=== PATIENT | female | born 1985 | race Hispanic/Latino ===

== ENCOUNTER 2018-12-28 20:52 | Inpatient (IN) | payer OTHER ==
[2018-12-28] MEDS ORDERED: Lactated Ringer's 1,000 ML IV ONE (21:30)
[2018-12-29 01:09] LABS: BASO % 0.5 % (0.0-2.0); EOS # 0.1 K/uL (0.0-0.7); HEMOGLOBIN 10.2 g/dL (12.0-16.0); LYMPH # 2.3 K/uL (1.0-4.3); LYMPH % 26.7 % (20.0-40.0); MEAN CORPUSCULAR HEMOGLOBIN 28.7 pg (27.0-31.0); MEAN CORPUSCULAR HGB CONC 33.4 g/dL (33.0-37.0); MEAN PLATELET VOLUME 10.7 fl (7.2-11.7); MONO # 0.7 K/uL (0.0-0.8); MONO % 8.4 % (0.0-10.0); NEUT # 5.6 K/uL (1.8-7.0); NEUT % 63.4 % (50.0-75.0); NRBC % 0.1 % (0.0-0.0); RBC 3.54 Mil/uL (3.80-5.20); RED CELL DISTRIBUTION WIDTH 15.6 % (11.5-14.5); WHITE BLOOD COUNT 8.8 K/uL (4.8-10.8)
[2018-12-29 05:20] VITALS: BMI 38.0
[2018-12-29 05:29] VITALS: RESP 20
[2018-12-29] MEDS: Lactated Ringer's 1,000 ML IV SCH ×2 (05:30→11:00)
--- NOTE | 2018-12-29 07:23 | OBHP ---
Datetime: 12/28/2018 21:22 IP Adm Impression: Term, intrauterine IP Admit Plan: Admit to unit; Initiate labor protocol Admit Comment, IP Provider: 33 y/o , 40.5 weeks based on US presents to L_D for IOL. Patient rep orts occasional CTx every few hours. Denies LOF, VB. Endorses good movements. Denies any F/C/N/ V/D. care: Dr. Madera, records reviewed. GBS neg PMHx; Denies PSHx: Denies Allergies: NKDA F/H: DM and HTN in grandparents Social Hx: Denies smoking/drugs/alcohol Meds: PNVs PE Gen: NAD Chest: RRR, S1S2 present Lungs: CTAB Abdoemen: Gravid, soft, NT, BS+ Ext: +1 B/L pitting edema Psych: Normal mood and affact A/P: 33 y/o , 40.5 weeks based on US presents to L_D for IOL for late term elective induction. - EFM and toco monitoring - CBC, T_S, HIV, RPR, HbsAg - GBS negative - LR 999 and 125 - Cervidil for cervical ripening - Monitor for cervical changes Case discussed with Dr. Bullock and Dr. Dameon Hinojosa, PGY1 Patient was seen with the resident I agree with the note Pelvic Type - PN: Not Done Extremities - PN: Normal Abdomen - PN: Normal Back - PN: Normal Breast - PN: Not Done Lungs - PN: Normal Heart - PN: Normal Thyroid - PN: Not Done Neurologic - PN: Not Done HEENT - PN: Normal General - PN: Normal Presentation-Admit: Vertex FHR - Baseline A Provider: 140 IP Hx Assessment: The History has been Reviewed and is Current EGA AdmitDate IP: 40.5 Vital Signs Provider: Reviewed; Within Normal Limits IP Indication for Induction: Postterm IP Chief Complaint: Scheduled induction of labor NICHD Variability Prov Fetus A: Moderate 6-25bpm NICHD Accel Fetus A IP Provider: 15X15 FHR Category Provider Fetus A: Category I NICHD Decel Fetus A IP Provider: None Genitourinary Exam: Not Done DTRs - PN: Not Done
--- NOTE | 2018-12-29 12:59 | OBPN ---
Datetime: 12/29/2018 12:53 IP Procedures: Sterile Vag Exam IP Progress Plan: Continue present management; Induction Membranes, Provider: Intact Contraction Comments Provider: irreg pattern mild ctxs FHR - Baseline A Provider: 140s-150s IP Progress Note Comment: Patient comfortable without complaints. Cytotec 50 mcg placed vaginally. heart tracing category 1. Discussed plan with patient and all patient questions answered. Vital Signs Provider: Reviewed; Within Normal Limits NICHD Accel Fetus A IP Provider: 15X15 FHR Category Provider Fetus A: Category I NICHD Variability Prov Fetus A: Moderate 6-25bpm Dilatation, Provider: 1 Effacement, Provider: 50 Station, Provider: -2 NICHD Decel Fetus A IP Provider: None Datetime: 12/28/2018 21:22 Presentation-Admit: Vertex
--- NOTE | 2018-12-29 17:27 | OBPN ---
Datetime: 12/29/2018 17:20 IP Procedures: Sterile Vag Exam IP Progress Plan: Continue present management; Induction FHR - Baseline A Provider: 140s-150s IP Progress Note Comment: Patient without complaints. heart tracing category 1. Cytotec 50 m cg no. 2 placed vaginally. Plan to continue current management. Discussed plan with patient and all patient questions answered. Vital Signs Provider: Reviewed; Within Normal Limits NICHD Accel Fetus A IP Provider: 15X15 FHR Category Provider Fetus A: Category I NICHD Variability Prov Fetus A: Moderate 6-25bpm Dilatation, Provider: 1 Effacement, Provider: 75 Station, Provider: -1 NICHD Decel Fetus A IP Provider: None
[2018-12-29] MEDS ORDERED: Oxytocin 30 UNIT in NS 500 ml 30 UNITS/500 ML BAG IV ONE (21:40)
--- NOTE | 2018-12-29 23:26 | OBPN ---
Datetime: 12/29/2018 21:20 IP Procedures: Sterile Vag Exam IP Progress Plan: Continue present management; Augmentation FHR - Baseline A Provider: 150s IP Progress Note Comment: Patient without complaints. heart tracing category 1. Plan to star t Pitocin augmentation. Discussed plan with patient and all patient questions answered. Vital Signs Provider: Reviewed; Within Normal Limits NICHD Accel Fetus A IP Provider: 15X15 NICHD Variability Prov Fetus A: Moderate 6-25bpm Dilatation, Provider: 1-2 Effacement, Provider: 75 Station, Provider: -1 NICHD Decel Fetus A IP Provider: None
[2018-12-30] MEDS ORDERED: Nalbuphine HCL 10 mg/ml Ampule IVP PRN (01:30)
[2018-12-30] MEDS ORDERED: Fentanyl/Bupivacaine HCl 250 ML EPI ONE (02:57)
[2018-12-30] MEDS: Lactated Ringer's 1,000 ML IV SCH ×4 (03:38→21:20)
--- NOTE | 2018-12-30 08:19 | OBPN ---
Datetime: 12/30/2018 08:12 IP Progress Plan: Continue present management; Augmentation FHR - Baseline A Provider: 130s-140s IP Progress Note Comment: Patient resting comfortably status post epidural. Continue current manage ment. heart tracing category 1. Discussed plan with patient and all patient questions answere d. Vital Signs Provider: Reviewed; Within Normal Limits NICHD Accel Fetus A IP Provider: 15X15 FHR Category Provider Fetus A: Category I NICHD Variability Prov Fetus A: Moderate 6-25bpm Dilatation, Provider: 2-3 per RN NICHD Decel Fetus A IP Provider: None
[2018-12-30] MEDS ORDERED: Oxytocin 30 UNIT in NS 500 ml 30 UNITS/500 ML BAG IV ONE (16:31)
[2018-12-30] MEDS ORDERED: Bupivacaine HCl 0.25% PF (10 ml) Inj ONE (19:35)
[2018-12-30] MEDS ORDERED: Lidocaine 1% Inj (20ml) ONE (22:39)
[2018-12-31] MEDS ORDERED: Bupivacaine HCl 0.5% PF (30 ml) Inj ONE ×2 (01:11→03:22)
[2018-12-31] MEDS ORDERED: Oxytocin 30 UNIT in NS 500 ml 30 UNITS/500 ML BAG IV ONE (02:06)
[2018-12-31] MEDS: Lactated Ringer's 1,000 ML IV SCH ×2 (05:30→07:26)
[2018-12-31] MEDS ORDERED: ceFAZolin 2 GM in Sodium Chloride 0.9% 100 ML IVPB ONE (06:44)
[2018-12-31] MEDS ORDERED: Azithromycin 500 MG in Sodium Chloride 0.9% 250 ML IVPB STA (06:45)
[2018-12-31] MEDS ORDERED: Morphine 1 mg/ml preservative-free Inj(Duramorph) ONE (07:43)
--- NOTE | 2018-12-31 09:34 | OBDS ---
DELIVERY PERSONNEL Delivery Doctor: Vesta Bullock MD Road Hogger Operator: Sofía Drummond [facility] Anesthesiologist: Dr. Arroyo MATERNAL INFORMATION Delivery Anesthesia: Epidural; Spinal Medications in Delivery: pitocin Provider Comments: See operative report LABOR SUMMARY EDC: 12/23/2018 00:00 No. Babies in Womb: 1 Attempted: No Labor Anesthesia: Epidural LABOR INFORMATION Reason for Induction: Postterm Complete Dilatation: 12/31/2018 00:44 Cervical Ripening Agents: Cervidil; Cytotec @ Oxytocin: Induction Group B Beta Strep: Negative Steroids Given: None Reason Steroids Not Administered: Not Applicable MEMBRANES Membranes Rupture Method: Artificial Rupture of Membranes: 12/30/2018 15:44 Length of Rupture (hrs): 16.95 Amniotic Fluid Color: Clear Amniotic Fluid Amount: Small Amniotic Fluid Odor: Normal STAGES OF LABOR Stage 2 hrs: 7 Stage 2 min: 57 Stage 3 hrs: 0 Stage 3 min: 1 CSECTION DELIVERY Primary Indication: Prolonged Active Phase Secondary Indication: Failed Induction CSection Urgency: Non Elective CSection Incidence: Primary Labor: Labor Elective: Nonelective CSection Incision: Lower Uterine Transverse BABY A INFORMATION Infant Delivery Date/Time: 12/31/2018 08:41 Method of Delivery: Born in Route : No : N/A Forceps: N/A Shoulder Dystocia : No (Annotations: Data stored by [facility] on behalf of user) SHOULDER DYSTOCIA BABY A Delivery Date/Time: 12/31/2018 08:41 PRESENTATION/POSITION BABY A Presentation: Cephalic Cephalic Presentation: Vertex Vertex Position: Direct OP Breech Presentation: N/A PLACENTA INFORMATION BABY A Placenta Delivery Time : 12/31/2018 08:42 Placenta Method of Delivery: Expressed Placenta Status: Delivered SCORES BABY A Heart Rate 1 min: >100 bpm Resp Effort 1 min: Slow, Irregular Reflex Irritability 1 min: Grimace Muscle Tone 1 min: Some Flexion of Extremities Color 1 min: Body [place], Extremities Blue SCORE 1 MIN: 6 Heart Rate 5 min: >100 bpm Resp Effort 5 min: Slow, Irregular Reflex Irritability 5 min: Cough or Sneeze or Pulls Away Muscle Tone 5 min: Some Flexion of Extremities Color 5 min: Body [place], Extremities Blue SCORE 5 MIN: 7 Heart Rate 10 min: >100 bpm Resp Effort 10 min: Good Cry Reflex Irritability 10 min: Cough or Sneeze or Pulls Away Muscle Tone 10 min: Active Motion Color 10 min: Body [place], Extremities Blue SCORE 10 MIN: 9 INFORMATION BABY A Gestational Age at Delivery: 41.1 Gestational Status: Term Outcome : Liveborn Infant Condition : Stable Sex: Female IDENTIFICATION/MEDS BABY A ID Band Location: Left Leg; Left Arm WEIGHT/LENGTH BABY A Infant Birthweight (gms): 3910 Weight (lb): 8 Infant Weight (oz): 10 CORD INFORMATION BABY A No. Cord Vessels: 3 Nuchal Cord : N/A Cord Blood Taken: Yes Infant Suction: Mouth; Nose; Pharynx ASSESSMENT BABY A Complications: Meconium Physical Findings at Delivery: Within Normal Limits; Caput Succedaneum; Molding of the Head Respirations: Grunting Directional Drill Operator/ALS Called : Yes Transferred To: Nursery
[2018-12-31] MEDS ORDERED: Lactated Ringer's 1,000 ML IV SCH (10:15)
[2018-12-31] MEDS ORDERED: OXYTOCIN/0.9 % NS 20 UNIT/1,000 ML BAG IV SCH (10:45)
[2018-12-31] MEDS ORDERED: Lactated Ringer's 500 ML IV SCH ×2 (19:15→20:45)
[2018-12-31] MEDS ORDERED: Oxycodone/Acetaminophen 5/325 mg Tab PO PRN (20:42)
[2019-01-01 06:47] LABS: MEAN CELL VOLUME 85.6 fl (81.0-99.0); MEAN CORPUSCULAR HGB CONC 32.6 g/dL (33.0-37.0); RBC 2.52 Mil/uL (3.80-5.20); WHITE BLOOD COUNT 15.7 K/uL (4.8-10.8)
[2019-01-01 06:58] LABS: HEMOGLOBIN 7.1 g/dL (12.0-16.0)
--- NOTE | 2019-01-01 14:08 | OBPPN ---
Datetime: 01/01/2019 14:04 PP Pain Prov: Within normal limits PP Nausea Prov: Denies PP Flatus Prov: Yes PP Breasts Prov: Not Done PP Heart Prov: Normal PP Lungs Prov: Normal PP Abdomen/Uterus Prov: Normal PP Lochia Prov: Not Done PP Vulva/Perineum Prov: Not Done PP CVA Tenderness Prov: Normal PP Extremities Prov: Normal PP C/S Incision Prov: Normal PP Impression Prov: Normal progression PP Plan Prov: Continue present management PP Progress Note Prov: Postoperative day #1 ambulating tolerating diet pain well controlled Vital signs stable afebrile Uterus firm below the umbilicus Incision clean dry and intact Extremities no Homans Postop day #1 Encourage ambulation analgesia regular diet anticipate discharge in a.m. DC Crooks and IV fluids Vital Signs Provider PP: Reviewed
--- NOTE | 2019-01-02 09:34 | OBPPN ---
Datetime: 01/02/2019 09:21 PP Pain Prov: Within normal limits PP Nausea Prov: Denies PP Flatus Prov: Yes PP Breasts Prov: Normal PP Heart Prov: Normal PP Lungs Prov: Normal PP Abdomen/Uterus Prov: Normal PP Lochia Prov: Normal PP Vulva/Perineum Prov: Normal PP CVA Tenderness Prov: Normal PP Extremities Prov: Normal PP Comments Phys Exam Prov: Fundus firm under umbilicus Incision clean/dry/intact PP Impression Prov: Normal progression PP Plan Prov: Continue present management PP Progress Note Prov: Patient denies CP, no SOB, no N/V, tolerating Po diet, ambulating/voidng well , mild lochia, abdominal pain tolerable with meds, +flatus A/P POD #2 1. Continue postoperative orders 2. Encourage ambulation/ IP PP Procedures: None Vital Signs Provider PP: Reviewed; Within Normal Limits Vital Signs Provider Details PP: +2 edema B/L LE
--- NOTE | 2019-01-03 08:49 | OP ---
PROCEDURE DATE: 12/31/18 PREOPERATIVE DIAGNOSES: Intrauterine at 41 weeks, failed induction, maternal request for primary section, arrest of dilation at 9 cm. POSTOPERATIVE DIAGNOSES: Intrauterine at 41 weeks, failed induction, maternal request for primary section, arrest of dilation at 9 cm. OPERATION PERFORMED: Primary low-flap transverse section by Pfannenstiel skin incision. SURGEON: Irina Bullock MD CADDIE SUPERVISOR: Dr. Joycelyn Xiao. She was helpful in creating exposure, obtaining hemostasis, delivery of the and closure of the patient. The procedure would not have been possible without her assistance. ANESTHESIA: Spinal. ANESTHESIA ADMINISTERED BY: Dr. Arroyo. ESTIMATED BLOOD LOSS: 1000 mL. The patient received 1900 mL of D5 LR intraoperatively. URINE OUTPUT: 60 mL. OPERATIVE FINDINGS: Female , occiput posterior position, weighing 3910 g. Normal uterus, tubes, and ovaries were identified. DESCRIPTION OF PROCEDURE: After informed consent was obtained, the patient was taken to the operating room, where she was given spinal anesthesia. She was then prepped and draped in the normal sterile fashion with a leftward tilt. A Pfannenstiel skin incision was then made with a scalpel and carried down to the underlying layer of fascia. The fascia was nicked in the midline. The fascial incision was then extended laterally with curved Coleman scissors. The superior aspect of the fascial incision was then grasped with Genoveva clamps, elevated up, and the rectus muscles were dissected off using both sharp and blunt dissection. Attention was then turned to the inferior aspect of the fascial incision, which in a similar fashion, was grasped with Genoveva clamps and elevated up, and the rectus muscles were dissected off using both sharp and blunt dissection. The rectus muscles were then in the midline. The peritoneum identified and entered sharply with the Metzenbaum scissors. Peritoneal incision was then extended superiorly and inferiorly with good visualization of the bladder. The bladder blade was inserted. The vesicouterine peritoneum was identified and entered sharply with Metzenbaum scissors. The incision was then extended laterally. The bladder flap was created digitally. The bladder blade was then re-adjusted, and a low transverse incision was made with the scalpel. The uterine incision was then extended laterally with the bandage scissors. The infant's head was then delivered atraumatically. The nose and mouth were suctioned with DeLee suction trap. The cord was clamped and cut. The was handed off to the awaiting pediatricians. The placenta was then removed manually. The uterus was then closed with 0 Vicryl in a running locked fashion. A second layer of the same suture was used to obtain excellent hemostasis. The uterus was then returned to the abdomen. The gutters were then cleared of all clots and debris. The abdomen was copiously irrigated. The irrigant was removed with suction device. Hemostasis was noted. The peritoneum was then closed with 2-0 Vicryl in a running fashion. The muscles were reapproximated with 0 Vicryl in an interrupted fashion. The fascia was closed with 0 Vicryl in a running fashion. The skin was closed with 3-0 on a Storm needle. All sponge, lap, needle, and instrument counts were correct x2. The patient was taken to the recovery room in awake and stable condition. Irina Bullock MD
--- NOTE | 2019-01-03 08:54 | OBPPN ---
Datetime: 01/03/2019 08:48 PP Pain Prov: Within normal limits PP Nausea Prov: Denies PP Flatus Prov: Yes PP Breasts Prov: Normal PP Heart Prov: Normal PP Lungs Prov: Normal PP Abdomen/Uterus Prov: Normal PP Lochia Prov: Normal PP Vulva/Perineum Prov: Not Done PP CVA Tenderness Prov: Normal PP Extremities Prov: Normal PP C/S Incision Prov: Normal PP Progress Prov: Normal PP Impression Prov: Normal progression PP Plan Prov: Continue present management PP Impression Other Prov: Anemia PP Progress Note Prov: She feels fine; had BM yesterday H/H 02/26 A: S/ P C/S Anemia asymptomatic Rh neg PLAN: will dishcarge home and follow up in 1-2w [facility] Rec'd Rhogam yesterday
--- NOTE | 2019-01-03 10:39 | OBDCSUM ---
Datetime: 01/03/2019 08:59 Discharged to, Provider: Home Follow up at, Provider: Thuy Disch Instr Activity: Normal activity Disch Instr Diet: Regular Discharge Instructions, Provider: Routine instructions given Discharge Diagnosis, Provider: Term Delivered Follow up in weeks, Provider: 1-2w Disch Referrals: None Contraception discussed, Prov: Yes Disch Activity Restrictions: No lifting; No sexual activity; Nothing in vagina - [place], tampon s, douche
[2019-01-03 19:08] VITALS: BP 150/78; PULSE 74; TEMP 98.6; O2SAT 96
== END 2019-01-03 12:30 | disposition home or self-care (01) | DRG 787 ==
LOC: H.L&D 21:31 → H.OB/GYN 12-31 15:48
PROVIDERS: ADMIT Obstetrics & Gynecology Gynecology; ATTEND Obstetrics & Gynecology Gynecology
PROC: 4A1HXCZ Monitoring of Products of Conception, Cardiac Rate, External Approach (ICD-10-PCS; 2018-12-28)
PROC: 3E0P7VZ Introduction of Hormone into Female Reproductive, Via Natural or Artificial Opening (ICD-10-PCS; 2018-12-29)
PROC: 10D00Z1 Extraction of Products of Conception, Low, Open Approach (ICD-10-PCS; principal; 2018-12-31)
PROC: 3E0334Z Introduction of Serum, Toxoid and Vaccine into Peripheral Vein, Percutaneous Approach (ICD-10-PCS; 2019-01-01)
DX: O48.0 Post-term pregnancy (principal); O36.0930 Maternal care for other rhesus isoimmunization, third trimester, not applicable or unspecified; Z3A.41 41 weeks gestation of pregnancy; Z37.0 Single live birth; O61.9 Failed induction of labor, unspecified; O63.1 Prolonged second stage (of labor); O62.0 Primary inadequate contractions; O77.0 Labor and delivery complicated by meconium in amniotic fluid; O90.81 Anemia of the puerperium